=== PATIENT | male | born 1995 | race Two or more races ===

== ENCOUNTER 2019-08-12 15:44 | Emergency (ER) | payer MEDICAID ==
[~2019-08-12] VITALS: Ht 182.9 cm; Wt 79.4 kg
[2019-08-12 15:53] VITALS: BP 128/82
[2019-08-12] MEDS ORDERED: IBUPROFEN 400 MG TABLET ONE (16:11)
[2019-08-12] MEDS ORDERED: IBUPROFEN 400 MG TABLET PO ONE (16:30)
== END 2019-08-12 16:28 | disposition home or self-care (01) ==
LOC: ER 15:56
DX: S66.811A Strain of other specified muscles, fascia and tendons at wrist and hand level, right hand, initial encounter (principal); W11.XXXA Fall on and from ladder, initial encounter; Y93.89 Activity, other specified; Y92.89 Other specified places as the place of occurrence of the external cause; Y99.8 Other external cause status

== ENCOUNTER 2019-10-24 11:42 | Emergency (ER) | payer MEDICAID, OTHER ==
[~2019-10-24] VITALS: Ht 185.4 cm; Wt 65.8 kg
[2019-10-24 11:48] VITALS: BP 116/62
--- NOTE | 2019-10-24 13:28 | NUR ---
THUMB SPICA APPLIED
--- NOTE | 2019-10-24 13:28 | NUR ---
PT. VERBALIZED UNDERSTANDING OF AFTERCARE INSTRUCTIONS.Patient discharged to home in stable condition. Written and verbal after care instructions given. Patient verbalizes understanding of instruction.
== END 2019-10-24 13:44 | disposition home or self-care (01) ==
LOC: ER 11:54
DX: M25.531 Pain in right wrist (principal); X58.XXXA Exposure to other specified factors, initial encounter; Y93.89 Activity, other specified; Y92.89 Other specified places as the place of occurrence of the external cause; Y99.8 Other external cause status
CPT/HCPCS: 73110